=== PATIENT | female | born 1970 | race Caucasian/White ===

== ENCOUNTER → 2020-12-09 03:20 | Outpatient (CLI) | payer OTHER, SELFPAY ==
[2020-12-09 19:46] LABS: SARS-CoV-2 RNA PCR Negative
== END ==
PROVIDERS: PCP Internal Medicine; Visit Provider Plastic Surgery
DX: Z01.812 Encounter for preprocedural laboratory examination (principal); Z20.822 Contact with and (suspected) exposure to COVID-19
CPT/HCPCS: C9803; U0003; U0005

== ENCOUNTER 2020-12-13 01:32 | Day surgery (SDC) | payer OTHER, SELFPAY ==
[2020-11-29 12:55] VITALS: BMI 17.7
[2020-12-13] VITALS (11 sets, daily range): BP systolic 100–132; BP diastolic 60–74; PULSE 52–75; RESP 10–20; TEMP 36.1–36.4; O2SAT 95–100
--- NOTE | ~2020-12-13 | XR_ITS ---
EXAMINATION: XR surgery orthopedic EXAM DATE: 12/13/2020 09:00 INDICATION: Right thumb trapezium resection, arthroplasty. TECHNIQUE: Fluoroscopy used during right hand performed by Dr. Hector Montes MD. Radiologist was not present for the imaging or procedure. Total fluoroscopic time of 18 seconds. The DAP for this procedure was 0.009 mGym2. A total of 3 images sent to PACS from the exam. FINDINGS: Image demonstrates defect following removal of right trapezium bone. Correlate with phillip armijo note. IMPRESSION: Fluoroscopy used during right trapezium resection. Reviewed, dictated and finalized at location B.
--- NOTE | 2020-12-13 06:36 | WPDANESEPPF ---
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 Patient Data Age: 50 Gender: F Height: 5 ft 6 in Weight: 49.9 kg Allergies Allergy/AdvReac Type Severity Reaction Status Date / Time acetaminophen [From Vicodin] AdvReac Mild Nightmare Verified 11/29/20 13:25 doxycycline AdvReac Mild Vomiting Verified 11/29/20 13:22 hydrocodone [From Vicodin] AdvReac Mild Nightmare Verified 11/29/20 13:25 moxifloxacin [From Avelox] AdvReac Mild Vomiting Verified 11/29/20 13:25 NSAIDS (Non-Steroidal AdvReac Mild Other Verified 11/29/20 13:24 Anti-Inflamma Home Medications Medication Instructions Recorded Confirmed Type alprazolam 0.5 mg PO PRN PRN 11/29/20 11/29/20 History biotin 1 mg PO DAILY 11/29/20 11/29/20 History omega-3 fatty acids [Fish Oil] 1 cap PO DAILY 11/29/20 11/29/20 History prasterone (dhea) [Intrarosa] 1 insert VAGINAL HS 11/29/20 11/29/20 History turmeric 1 cap PO DAILY 11/29/20 11/29/20 History meloxicam 15 mg PO DAILY 12/01/20 12/01/20 History Patient hx anesthesia problems: none Family hx anesthesia problems: none [facility] Past Medical History Medical History (Updated 12/13/20 @ 06:42 by Yahir Maldonado MD) Anxiety Social History Social History Second hand tobacco smoke exposure: No Substance use type: does not use Spiritual care concerns: No Anes - Eval Final PreProcedure Day of Procedure 12/13/20 06:36 Patient weight: thin Heart: regular rate and rhythm Lungs: clear to auscultation Airway: Mallampati scale class 1 Neurological: alert and oriented Last oral intake: >/= 8 hours ASA classification: II Emergent: no Anesthetic plan: proceed Anesthesia type and monitoring: general LMA and standard monitoring Informed Consent: The patient's anesthetic plan and its attendant risks and benefits were discussed with the patient/family/POA. Questions were solicited and answers provided to the satisfaction of the patient/family/POA.
[2020-12-13] MEDS: LACTATED RINGERS 1,000 ML 30 ML IV CONT (07:05)
--- NOTE | 2020-12-13 07:08 | WPDHPUPDATE1 ---
History and Physical Update Update Date/Time: 12/13/20 07:08 History and Physical has been reviewed, including an updated exam of the patient. There are NO changes in the patient's condition. Risks, benefits, and alternatives have been discussed and questions answered. Patient agrees to proceed with procedure.
[2020-12-13] MEDS: LIDO 1%/EPINEPHRINE 1:100,000 50 ML VIAL 20 ML INFILTRATE (07:30)
[2020-12-13] MEDS: ceFAZolin 2 GM/D5W 50 ML 2 GM/50 ML BAG IVPB (07:32)
[2020-12-13] MEDS: BUPIVACAINE/EPINEPHRINE 0.5% 10 ML VIAL 9 ML INFILTRATE (08:56)
--- NOTE | 2020-12-13 09:08 | P.OPB_ITS ---
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 Implants: Internal brace resorbable anchors and radio lucent fiber tape. Anesthesia: GLMA Surgeon: Hector Montes MD Elevated Work Platform Operator: Rad Estimated blood loss (mL): 3 Drains: No Packing: No Pathology: none sent Complications: No immediate complications Condition: stable Disposition: PACU
[2020-12-13] MEDS: fentaNYL CITRATE INJ (*CRX) 100 MCG/2 ML VIAL 25 MCG IV PUSH ×3 (09:26→09:45)
--- NOTE | 2020-12-13 09:31 | P.OP_ITS ---
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 The patient was taken to the operating room and placed supine on the operating table. Time-out was held and confirmed. She was given general anesthesia as the extremity was prepped and draped in usual fashion. The appropriate marking was placed and the site locally infiltrated with 1% lidocaine with epinephrine. The tourniquet was inflated to 250 mmHg. The incision was made as marked on the radial base of the thumb. Cutaneous nerves were held out of the way. The capsule was incised between the EPB the and the APL. The dorsal radial artery was identified and protected. The trapezium was dissected with a 15 blade for the most part until rongeur could be slipped in and the trapezium was taken out in a few pieces. C-arm images confirmed the adequacy of the resection. The Arthrex internal brace kit was opened on the back table. The site for the anchor at the base of the 2nd metacarpal was confirmed with C-arm images. That hole was drilled as required and the Arthrex internal brace was anchored at that position. The radial base of the 1st metacarpal was exposed through the dissection already performed and the 1st met acarpal anchor site drilled and the anchor inserted appropriately. The tape was cut. The satisfactory function of the brace was confirmed. The capsule that was still available was repaired with 3-0 Vicryl sutures. The extensor tendons remained intact and were functional. The skin was closed with the 4-0 running intradermal Monocryl suture. The tourniquet was released prior to that closure and no significant bleeding was noted from this area. A Xeroform and gauze dressing with Delta Lite was applied to the thumb and forearm. A thumb spica splint allowing IP joint range of motion was applied to the radial side. Nine milliliter of 0.5% Marcaine with epinephrine were injected in and around the base of the thumb. The patient was discharged from the operating room stable condition to the PACU. She is being discharged home with instructions in wound care and follow-up and has a prescription for oxycodone 5/325 8. And alprazolam 0.5 mg 2. Anesthesia: GLMA Surgeon: Hector Montes MD Process Design Chemical Engineer: Rad Estimated blood loss (mL): 3 Drains: No Packing: No Pathology: none sent Complications: No immediate complications Condition: stable Disposition: PACU
--- NOTE | 2020-12-13 09:34 | SUR.PHASEI ---
O2 removed at 0933.
[2020-12-13] MEDS: MIDAZOLAM HCL (*CRX) 2 MG/2 ML VIAL 1 MG IV PUSH (09:42)
[2020-12-13] MEDS: oxyCODONE HCL (*CRX) 5 MG TAB IR PO (10:46)
--- NOTE | 2020-12-13 11:25 | SUR.PHASEII ---
1118 - dr. zambrano in room talking with pt and pt's family.
== END 2020-12-13 11:48 | disposition home or self-care (01) ==
PROVIDERS: PCP Internal Medicine; Visit Provider Plastic Surgery
PROC: (CPT 25447; principal; 2020-12-13 07:30)
DX: M18.11 Unilateral primary osteoarthritis of first carpometacarpal joint, right hand (principal); F41.9 Anxiety disorder, unspecified
CPT/HCPCS: 25447; A9270; C1713; C9803; J0690; J1100; J2250; J2405; J2704; J3010; J7120; U0003; U0005

== ENCOUNTER 2021-02-16 08:39 | Outpatient (CLI) | payer OTHER, SELFPAY ==
--- NOTE | ~2021-02-16 | XR_ITS ---
XR wrist RT min 3V DATE: 02/16/2021 09:03 INDICATION: Postoperative examination; trapezium resection. Pain. TECHNIQUE: 4 views COMPARISON: 12/13/2020 C-arm spot fluoroscopy wrist views FINDINGS: Status post trapezium resection. No fracture or dislocation, periosteal reaction or bone de struction is evident. IMPRESSION: Resection of the trapezium Reviewed, dictated and finalized at location B. IMPRESSION: Resection of the trapezium
== END 2021-02-16 08:40 | disposition home or self-care (01) ==
LOC: ANHIMG 08:45
PROVIDERS: PCP Internal Medicine; Visit Provider Plastic Surgery
DX: M19.031 Primary osteoarthritis, right wrist (principal)
CPT/HCPCS: 73110

== ENCOUNTER 2021-04-10 15:27 | Outpatient (CLI) | payer BC, SELFPAY ==
--- NOTE | ~2021-04-10 | CT_ITS ---
EXAMINATION: CT wrist RT wo con DATE: 04/10/2021 15:52 INDICATION: Radial sided right wrist pain TECHNIQUE: High resolution computed tomography (CT) of the right wrist was performed without intraven ous contrast. Additional sagittal and coronal reconstructions were performed. Automated exposure cont rol and iterative reconstruction technique were employed. The dose-length product was 356.03 mGy-cm. COMPARISON: Radiographs dated 02/16/21 FINDINGS: Again seen are postoperative change of a right first carpal metacarpal suspension arthroplasty with t rapezial resection. There are residual bone fragments at the resection bed the largest and most serna r is positioned between the palmar margin of the distal pole of the scaphoid and base of the first me tacarpal and which measures 11 x 5 x 7 mm in maximal orthogonal dimensions. There are couple addition al approximately 2 mm diameter bone fragments more centrally within the resection bed. Lucent anchor tracks are seen at the radial sides of the base of both the first and second metacarpals reportedly f or an Arthrex internal brace. Alignment appears near-anatomic. No acute fractures identified. Minimal osteoarthritis at many of the joints at the right wrist and carpus. No joint effusions or other abno rmal fluid collections. IMPRESSION: 1. Status post subtotal trapezial resection for first carpal metacarpal suspension arthroplasty as de tailed above with residual 11 x 5 x 7 mm bone fragment at the palmar aspect of the resection bed and a couple additional 2 mm more central bone fragments. Reviewed, dictated and finalized at location A. IMPRESSION: 1. Status post subtotal trapezial resection for first carpal metacarpal suspens ion arthroplasty as detailed above with residual 11 x 5 x 7 mm bone fragment at the palmar aspect of the resection bed and a couple additional 2 mm more centr al bone fragments.
== END 2021-04-10 15:28 | disposition home or self-care (01) ==
LOC: ANHIMG 15:29
PROVIDERS: PCP Internal Medicine; Visit Provider Plastic Surgery
DX: M19.031 Primary osteoarthritis, right wrist (principal)
CPT/HCPCS: 73200

== ENCOUNTER 2021-07-17 10:36 | Emergency (ER) | payer BC, SELFPAY ==
[2021-07-17 10:46] VITALS: BP 124/74; PULSE 105; RESP 18; TEMP 37.4; O2SAT 100
--- NOTE | 2021-07-17 10:47 | ED.URI ---
HPI - URI/Sore Throat General Chief Complaint: Headache Stated Complaint: back pain headache elevated bp Time Seen by Provider: 07/17/21 10:48 Source: patient and RN notes reviewed History of Present Illness HPI Narrative: Patient is a 51-year-old female who presents the urgent care with complaints of upper back pain and headache. Patient states that it started last night and she was evaluated by the school nurse today who told her she had high blood pressure . Patient believes the blood pressure reading was 147/100. Patient states her headache is all in the front. Denies of any recent strenuous activity, fall or trauma. Patient has not taken anything [id number] for her headache or back pain. Patient denies any chest pain. Denies of any history of cardiac event. Denies of any upper respiratory symptoms. Denies of any vision changes. No other acute complaints. No acute distress noted. Patient read the plan of care. Some parts of this dictation were generated by voice recognition software and may contain typographical and/or grammatical inaccuracies. Related Data Allergies Allergy/AdvReac Type Severity Reaction Status Date / Time doxycycline Allergy Vomiting Verified 07/17/21 10:56 moxifloxacin [From Avelox] Allergy Vomiting Verified 07/17/21 10:58 NSAIDS (Non-Steroidal AdvReac Other Verified 07/17/21 10:58 Anti-Inflamma Review of Systems Review of Systems: CONSTITUTIONAL: Denies fever, chills, or sweats. EYES: Denies visual changes, redness, or discharge. ENT: Denies rhinorrhea, congestion, sore throat, or otalgia. CARDIOVASCULAR: Denies chest pain, palpitations, or edema. RESPIRATORY: Denies cough or dyspnea. GASTROINTESTINAL: Denies abdominal pain, nausea, vomiting, or diarrhea. GENITOURINARY: Denies dysuria or hematuria. SKIN: Denies rash or itching. MUSCULOSKELETAL: Reports of upper back pain NEUROLOGIC: Reports of headache All other systems reviewed are negative, except as documented in HPI. PMFSH Comments At the time of my signature, I reviewed and agree with the nursing past medical, surgical, social, and family history. There is no relevant family history pertinent to the patient complaint. Exam Narrative: GENERAL: This is a well-nourished, well-developed patient, in no apparent distress. HEAD: normocephalic, atraumatic. EYES: PERRL. Sclera clear/white. Vision is grossly intact. EARS: External ears normal NOSE: External nose normal with no obvious nasal discharge, nares without redness, no rhinorrhea. THROAT: Mucous membranes moist NECK: Neck supple CARDIOVASCULAR: Regular rate and rhythm without murmurs, gallops, or rubs. RESPIRATORY: Clear to auscultation. Breath sounds equal bilaterally. No wheezes, rales, or rhonchi. SKIN: warm, intact with no suspicious lesions or rash, good texture and turgor. NEURO: awake, alert, and oriented to person, place and time. There were no obvious focal neurologic abnormalities. EXTREMITIES: No clubbing, cyanosis, or edema. BACK: Nontender without deformity or crepitance. No flank tenderness. Course Course Level of Care: Express Care Visit Vital Signs Vital signs: Vital Signs Temperature 99.3 F 07/17/21 10:46 Pulse Rate 105 H 07/17/21 10:46 Respiratory Rate 18 07/17/21 10:46 Blood Pressure 124/74 07/17/21 10:46 Pulse Oximetry 100 07/17/21 10:46 Temperature 99.3 F 07/17/21 10:46 Pulse Rate 105 H 07/17/21 10:46 Respiratory Rate 18 07/17/21 10:46 Blood Pressure 124/74 07/17/21 10:46 Pulse Oximetry 100 07/17/21 10:46 Reviewed MDM - URI/Sore Throat MDM Narrative Medical decision making narrative: Reviewed EKG results with the patient. She is aware that the EKG is only a snapshot in time however there is no acute abnormality noted on the EKG. Considering your headache is newly onset without any history of headache, advised patient to go to the emergency room for further evaluation. Considering you wish to go home, you will
--- NOTE | 2021-07-17 11:00 | ECG_ITS ---
Measurements Intervals [place] Rate: 101 P: 74 [place]: 142 QRS: 87 QRSD: 84 T: 53 QT: 314 QTc: 409 Interpretive Statements SINUS TACHYCARDIA BASELINE WANDER- I, II, AVR, AVL, AVF BORDERLINE ECG Electronically Signed On 07-17-2021 11:23:14 SOCIAL SECURITY ASSESSOR by Antione Augustine D.O.
== END 2021-07-17 11:19 | disposition left against medical advice (07) ==
PROVIDERS: Emergency Provider Nurse Practitioner Family; PCP Internal Medicine
DX: R51.9 Headache, unspecified (principal)
CPT/HCPCS: 93005; 99213; G0463